=== PATIENT | male | born 1965 | race Asian ===

== ENCOUNTER 2024-10-28 09:34 | Inpatient (IN) | payer OTHER ==
[~2024-10-28] VITALS: Ht 165.1 cm; Wt 51.0 kg
[2024-10-28] MEDS: ADENOSINE 3 MG/ML 2 ML VIAL IVP ONE (09:59)
[2024-10-28] MEDS: DIGOXIN 250 MCG/ML 2 ML AMP IVP ONE ×2 (10:03→13:04)
[2024-10-28] MEDS: AMIODARONE HCL 150 MG in DEXTROSE 5%-WATER 97 ML IV ONE (10:17)
[2024-10-28] MEDS: AMIODARONE HCL 360 MG in DEXTROSE 5%-WATER 242.8 ML IV ONE (10:24)
[2024-10-28] MEDS: SODIUM CHLORIDE 0.9% 1,000 ML IV ONE (10:29)
[2024-10-28 10:30] LABS: BASOPHILS % (AUTO) 0.2 % (0.0-2.0); EOSINOPHILS % (AUTO) 0 % (1.0-6.0); HEMATOCRIT 44.5 % (41-53); HEMOGLOBIN 14.6 g/dL (13.5-17.5); LYMPHOCYTES # (AUTO) 0.4 K/uL (1.0-4.8); LYMPHOCYTES % (AUTO) 2.7 % (22.0-44.0); MEAN CORPUSCULAR HEMOGLOBIN 30.7 pg (26.0-34.0); MEAN CORPUSCULAR HGB CONC 32.8 G/dL (31.0-37.0); MEAN CORPUSCULAR VOLUME 94 fL (80-100); MONOCYTES # (AUTO) 0.5 K/uL (0.1-1.0); MONOCYTES % (AUTO) 3.7 % (2.0-9.0); NEUTROPHILS # (AUTO) 12.5 K/uL (1.8-7.7); PLATELET COUNT (AUTO) 355 K/uL (150-450); RED BLOOD CELL COUNT(AUTO) 4.76 MIL/uL (4.50-5.90); RED CELL DISTRIBUTION WIDTH 14.1 % (11.5-14.5); WHITE BLOOD COUNT (AUTO) 13.4 K/uL (4.5-11.0)
[2024-10-28 10:32] LABS: NEUTROPHILS % (AUTO) 93.4 % (40.0-70.0)
[2024-10-28 10:34] LABS: ANION GAP 18 mmol/L (8-16); CALCIUM, TOTAL 8.1 mg/dL (8.8-10.5); CARBON DIOXIDE 17 mmol/L (22-29); CHLORIDE 103 mmol/L (98-107); CREATININE 1.87 mg/dL (0.60-1.30); GLOMERULAR FILTR. RATE CALC 37 mL/min (>60); GLUCOSE,RANDOM 195 mg/dL (70-110); POTASSIUM 4.1 mmol/L (3.5-5.1); SODIUM SERUM 138 mmol/L (136-145); UREA NITROGEN, BLOOD 36 mg/dL (7-18)
[2024-10-28 10:40] LABS: PROTHROMBIN TIME 12.1 SEC (9.4-11.6)
[2024-10-28] MEDS: FUROSEMIDE 20 MG/2 ML VIAL IVP ONE (10:41)
[2024-10-28 10:45] LABS: TROPONIN I-HIGH SENSITIVITY 81 ng/L (<76)
[2024-10-28 10:50] LABS: B-TYPE NATRIURETIC PEPTIDE 285 pg/mL (0-100)
[2024-10-28 10:50] LABS: APPEARANCE,URINE CLEAR (CLEAR); BILIRUBIN,URINE NEGATIVE (NEGATIVE); COLOR,URINE YELLOW (YELLOW); GLUCOSE, URINE (UA) NEGATIVE (NEGATIVE); LEUKOCYTE ESTERASE ,URINE NEGATIVE (NEGATIVE); NITRATE,URINE NEGATIVE (NEGATIVE); OCCULT BLOOD,URINE LARGE (NEGATIVE); PH,URINE 6.5 (5.0-8.0); PROTEIN,URINE 300-600,SEE CONFIRM mg/dL (NEGATIVE); SPECIFIC GRAVITIY, URINE 1.029 (1.003-1.030); UROBILINOGEN,URINE <=1.0 mg/dL (<=1.0)
[2024-10-28 11:00] LABS: BACTERIA,URINE None Seen /HPF (None Seen); SQUAMOUS EPITHELIAL CELL,UR Few /LPF (None Seen); SULFOSALICYLIC ACID,URINE 3+ (Negative); WBC,URINE None Seen /HPF (0-5)
[2024-10-28] MEDS ORDERED: APIXABAN 5 MG TABLET PO ONE (11:00)
[2024-10-28 11:15] LABS: RBC MORPHOLOGY COMMENT NORMAL RBC MORPH
[2024-10-28] MEDS ORDERED: HEPARIN SODIUM,PORCINE 5,000 UNITS/ML VIAL IVP ONE (11:15)
[2024-10-28] MEDS ORDERED: HEPARIN SODIUM,PORCINE 5,000 UNITS/ML VIAL IVP PRN ×2 (11:15)
[2024-10-28] MEDS: HEPARIN SODIUM,PORCINE 5,000 UNITS/ML VIAL IVP ONE (11:44)
[2024-10-28] MEDS: HEPARIN SODIUM 25000 UNITS/D5W 250 ML IV PRN (11:45)
[2024-10-28] MEDS: ACETAMINOPHEN 1000 MG/ISO-OSM 100 ML IV ONE (12:10)
[2024-10-28] MEDS: SODIUM CHLORIDE 0.9% 1,400 ML IV ONE (12:10)
[2024-10-28] MEDS: CefTRIAXone 1 GM/DEXTROSE 50 ML IV ONE (12:30)
[2024-10-28] MEDS ORDERED: ONDANSETRON HCL 4 MG/2 ML VIAL IVP PRN (13:30)
[2024-10-28] MEDS ORDERED: MORPHINE SULFATE 2 MG/ML SYRINGE IVP PRN (13:30)
[2024-10-28] MEDS ORDERED: MAGNESIUM HYDROXIDE SUSPENSION 30 ML UDCUP PO PRN (13:30)
[2024-10-28] MEDS ORDERED: ZOLPIDEM TARTRATE 5 MG TABLET PO PRN (13:30)
[2024-10-28] MEDS ORDERED: BISACODYL 10 MG RECTAL RECTAL SUPPOSITORY PR PRN (13:30)
[2024-10-28] MEDS ORDERED: ACETAMINOPHEN 325 MG TABLET PO PRN (13:30)
[2024-10-28] MEDS ORDERED: HYDROCODONE/ACETAMINOPHEN 5-325 MG TABLET PO PRN (13:30)
[2024-10-28] MEDS: PIPERACILLIN SODIUM/TAZOBACTAM 2.25 GM in DEXTROSE 5%-WATER 50 ML IV ONE (14:12)
[2024-10-28 15:49] LABS: ALBUMIN 1.8 g/dL (3.4-5.0); BILIRUBIN,TOTAL 1.4 mg/dL (0.1-1.0); TOTAL PROTEIN, SERUM 6.1 g/dL (6.4-8.2)
[2024-10-28] MEDS: AMIODARONE HCL 540 MG in DEXTROSE 5%-WATER 239.2 ML IV ONE (16:28)
[2024-10-28 18:42] VITALS: BP 97/62; PULSE 73; RESP 18; TEMP 97.4; O2SAT 98
[2024-10-28 19:23] LABS: PH,URINE DRUG SCREEN 6.5 (5.0-8.0)
[2024-10-28 19:31] LABS: ALCOHOL, URINE DRUG SCREEN NEGATIVE (NEGATIVE); AMPHET/METH SCREEN,URINE NEGATIVE (NEGATIVE); BARBITURATE SCREEN, URINE NEGATIVE (NEGATIVE); BENZODIAZEPINES SCREEN,URINE NEGATIVE (NEGATIVE); CANNABINOID SCREEN,URINE NEGATIVE (NEGATIVE); COCAINE SCREEN,URINE NEGATIVE (NEGATIVE); METHADONE SCREEN, URINE NEGATIVE (NEGATIVE); OPIATE SCREEN,URINE NEGATIVE (NEGATIVE); PHENCYCLIDINE SCREEN,URINE NEGATIVE (NEGATIVE)
[2024-10-28 20:01] LABS: INFLUENZA A-RTPCR,COMBO NEGATIVE (NEGATIVE); INFLUENZA B-RTPCR,COMBO NEGATIVE (NEGATIVE); RESPIRATORY SYNCYTIAL VRS-PCR NEGATIVE (NEGATIVE); SARS COVID19 RTPCR, COMBO NEGATIVE (NEGATIVE)
[2024-10-28] MEDS ORDERED: SODIUM CHLORIDE 0.9% 250 ML IV ONE (20:47)
[2024-10-28 20:51] VITALS: BP 93/60; PULSE 76; RESP 18; TEMP 97.4; O2SAT 97
[2024-10-28] MEDS: PIPERACILLIN SODIUM/TAZOBACTAM 2.25 GM in DEXTROSE 5%-WATER 50 ML IV SCH (20:54)
[2024-10-28] MEDS: DOCUSATE SODIUM 100 MG CAPSULE PO SCH (21:00)
[2024-10-29 00:10] VITALS: BP 90/62; PULSE 87; RESP 18; TEMP 97.8; O2SAT 97
[2024-10-29 04:57] VITALS: BP 102/71; PULSE 81; RESP 18; TEMP 98.3; O2SAT 95
[2024-10-29 08:17] LABS: BASOPHILS % (AUTO) 0.4 % (0.0-2.0); EOSINOPHILS % (AUTO) 0 % (1.0-6.0); HEMATOCRIT 43.6 % (41-53); HEMOGLOBIN 14.4 g/dL (13.5-17.5); LYMPHOCYTES # (AUTO) 0.9 K/uL (1.0-4.8); MEAN CORPUSCULAR HEMOGLOBIN 30.7 pg (26.0-34.0); MEAN CORPUSCULAR HGB CONC 33.1 G/dL (31.0-37.0); MEAN CORPUSCULAR VOLUME 93 fL (80-100); MONOCYTES # (AUTO) 0.4 K/uL (0.1-1.0); MONOCYTES % (AUTO) 3.3 % (2.0-9.0); NEUTROPHILS # (AUTO) 11.6 K/uL (1.8-7.7); PLATELET COUNT (AUTO) 332 K/uL (150-450); RED CELL DISTRIBUTION WIDTH 13.9 % (11.5-14.5)
[2024-10-29 08:26] LABS: NEUTROPHILS % (AUTO) 89.3 % (40.0-70.0)
[2024-10-29 08:31] LABS: ANION GAP 9 mmol/L (8-16); CARBON DIOXIDE 26 mmol/L (22-29); CHLORIDE 107 mmol/L (98-107); POTASSIUM 3.7 mmol/L (3.5-5.1); SODIUM SERUM 142 mmol/L (136-145)
[2024-10-29 08:44] LABS: ALANINE AMINOTRANSFERASE 225 U/L (12-78); ALKALINE PHOSPHATASE 78 U/L (46-116); ASPARTATE AMINOTRANSFERASE 191 U/L (15-37); BILIRUBIN,TOTAL 1.2 mg/dL (0.1-1.0); CALCIUM, TOTAL 8.6 mg/dL (8.8-10.5); CREATININE 1.03 mg/dL (0.60-1.30); GLOMERULAR FILTR. RATE CALC > 60 mL/min (>60); GLUCOSE,RANDOM 129 mg/dL (70-110); TOTAL PROTEIN, SERUM 6.7 g/dL (6.4-8.2); UREA NITROGEN, BLOOD 29 mg/dL (7-18)
[2024-10-29 08:54] LABS: RBC MORPHOLOGY COMMENT NORMAL RBC MORPH
[2024-10-29 08:55] VITALS: BP 108/60; PULSE 81; RESP 17; TEMP 98; O2SAT 98
[2024-10-29] MEDS: PANTOPRAZOLE SODIUM 40 MG DR TABLET PO SCH (09:00)
[2024-10-29] MEDS: AMIODARONE HCL 750 MG in DEXTROSE 5%-WATER 485 ML IV SCH (09:24)
[2024-10-29] MEDS ORDERED: HEPARIN SODIUM,PORCINE 5,000 UNITS/ML VIAL IVP PRN (10:15)
[2024-10-29] MEDS: HEPARIN SODIUM,PORCINE 5,000 UNITS/ML VIAL IVP PRN (10:47)
[2024-10-29] MEDS: PIPERACILLIN/TAZO 3.375 GM/D5W 50 ML IV SCH (11:04)
[2024-10-29 12:37] VITALS: BP 110/65; PULSE 82; RESP 18; TEMP 98; O2SAT 98
[2024-10-29] MEDS: DEXTROSE 5%-0.9% SODIUM CHL 1,000 ML IV ONE (14:03)
[2024-10-29] MEDS ORDERED: 0.9% SODIUM CHLORIDE 15 ML NEB SOLUTION NEB ONE (15:34)
[2024-10-29] MEDS: DOXYCYCLINE HYCLATE 100 MG in DEXTROSE 5%-WATER 100 ML IV SCH (16:06)
[2024-10-29] MEDS: MetroNIDAZOLE 500 MG/NACL 100 ML IV SCH (17:28)
[2024-10-29 18:07] VITALS: BP 100/63; PULSE 82; RESP 17; TEMP 98.2; O2SAT 98
[2024-10-29] MEDS: CefTRIAXone 1 GM/DEXTROSE 50 ML IV SCH (18:36)
== END 2024-10-29 20:10 | disposition short-term general hospital (02) | DRG 871 ==
LOC: EMS 09:38 → EDH 11:43 → UNDOADMIN 13:17 → EDH 13:36 → UNDOADMIN 13:36 → EDH 18:05 → 5N 18:05
PROVIDERS: ADMIT Internal Medicine; ATTEND Internal Medicine
DX: A41.59 Other Gram-negative sepsis (principal); E43 Unspecified severe protein-calorie malnutrition; G93.41 Metabolic encephalopathy; J15.69 Pneumonia due to other Gram-negative bacteria; J44.0 Chronic obstructive pulmonary disease with (acute) lower respiratory infection; N17.9 Acute kidney failure, unspecified; Z68.1 Body mass index [BMI] 19.9 or less, adult; Z20.822 Contact with and (suspected) exposure to COVID-19; R09.02 Hypoxemia; R65.20 Severe sepsis without septic shock; I48.0 Paroxysmal atrial fibrillation; K21.9 Gastro-esophageal reflux disease without esophagitis; R73.9 Hyperglycemia, unspecified; R13.10 Dysphagia, unspecified
CPT/HCPCS: 0241U; 70450; 71045; 71250; 72192; 74150; 80048; 80053; 80076; 80307; 81001; 81002; 83605; 83880; 84145; 84484; 85025; 85610; 85730; 87040; 93005; 99291; J0131; J0282; J0696; J1160; J1644; J1940; J2543; J3490; J7030; J7042; J7050; J7060; 36415-L1; 36415-TC